=== PATIENT | female | born 1995 | race Caucasian/White ===

== ENCOUNTER 2023-11-20 22:05 | Emergency (ER) | payer OTHER, SELFPAY ==
[2023-11-20 22:06] VITALS: BP 159/95
--- NOTE | 2023-11-21 00:08 | ED.GENMED ---
History of Present Illness
General
Chief Complaint: Post Operative Problem(s)
Source: patient and family
Exam Limitations: none
Time Seen by Provider: 11/20/23 23:51
Nursing documentation reviewed up to this point in time: agreed with
Travel History
Have you had any contact with someone who has COVID-19?: No
Do you have any symptoms of coronavirus? Fever > 100 degrees, chills, cough, shortness of breath, sore throat, loss of taste or smell, muscle aches, or headache?: No
History of Present Illness
History of Present Illness:
27-year-old female presents with left foot pain. She had orthopedic surgery on her foot and the anesthesia started to wear off causing her immense pain. She called Claudia, who suggested that she take extra Percocet. She did which brought her
pain down to about a 7 out of 10. She took ibuprofen which did not seem to help. She was told to come to the emergency department for something extra to help her with her pain. Patient denies any new trauma. She states that the pain is located
in the foot where the surgery occurred. Denies any other pain.
Review of Systems
Review of Systems
Allergies reviewed?: Yes
Other source history: family
All Other Systems: ROS reviewed and negative except as documented in HPI and ROS
Constitutional: Reports no symptoms
EENT: Reports no symptoms
Respiratory: Reports no symptoms
Cardiac: Reports no symptoms
ABD/GI: Reports no symptoms
: Reports no symptoms
Musculoskeletal: Reports joint pain
Skin: Reports no symptoms
Neurological: Reports no symptoms
Endocrine: Reports no symptoms
Hematologic/Lymphatic: Reports no symptoms
Psychiatric: Reports anxiety
Phy Exam
General Physical Exam
General Presentation: well appearing and moderate distress
General age: appears stated age
General Skin: warm and dry
General Habitus: normal
General Mental: alert
General Hydration: appears well hydrated
Pulmonary Exam
Pulmonary Exam: no respiratory distress
Neurological Exam
Neurological Exam: alert and oriented x3
Musculoskeletal Exam
Musculoskeletal Exam: other (Left foot is in a splint and bandage. Patient request that we do not take it down. There is good capillary refill in the 3 toes that are exposed.)
Skin Exam
Skin Exam: normal color and warm/dry
Psychiatric Exam
Psychiatric Exam: normal mood/affect
Course
Orders/Labs/Results
Orders:
Orders
11/21/23 00:00
HYDROmorphone [Dilaudid] 0.5 mg IM NOW STA
Vital Signs
Initial and Last Documented VS:
Initial Vital Signs
Temp Pulse Resp BP Pulse Ox
98.0 F 86 18 159/95 98
11/20/23 22:06 11/20/23 22:06 11/20/23 22:06 11/20/23 22:06 11/20/23 22:06
Last Documented Vital Signs
Temp Pulse Resp BP Pulse Ox
98.0 F 98 16 149/77 95
11/20/23 22:06 11/21/23 01:16 11/21/23 01:16 11/21/23 01:16 11/21/23 01:16
*Critical Care Note
Total Time (30-74mins, 75-104mins- exclusive of procedures): Not Applicable
ED Attending Note
-
Portions of this chart may have been created with voice recognition software.� Occasional wrong word or��sound alike� substitutions may have occurred due to the inherent limitations of voice recognition software.
Discharge Plan
Departure
Patient Disposition: Home (Routine Discharge)
Date of Disposition: 11/21/23
Time of Disposition: 01:01
Patient with high blood pressure during this ER visit?: Yes
Discharge Problem:
Post-operative pain
Instructions: Postoperative Pain (DC), BLOOD PRESSURE
Prescriptions:
New
diclofenac sodium 75 mg tablet,delayed release (DR/EC)
75 mg PO BID Qty: 10 0RF
Referrals:
Jenise Lane PA [Family Provider] -
Activity Restrictions/Additional Instructions:
Your prescriptions were sent electronically to the pharmacy that you specified.
It was a pleasure meeting you and taking part in your care. We hope for your continued healing and wellness.
Please read discharge instructions in their entirety. However, they are for general education and may not describe your exact diagnosis at discharge. Information on your ER visit and medical conditions were discussed with you along with appropriate
follow up information...
If indicated, please take your medications as instructed and indicated on discharge paperwork.
Please schedule a follow up appointment as directed. Call to schedule an appointment
Please return to the emergency department with ANY change in, persisting, or worsening of symptoms. If any of your symptoms do not improve, or persist, or become more severe within 6-12 hours, please return to the emergency department for further
care.
Please return to the emergency department if you develop a headache, neck pain/stiffness, fever greater than 100.4F, chest pain, shortness of breath, persistent nausea, vomiting, slurred speech, difficulty walking, numbness/tingling, weakness, signs
of infection or any other symptoms that are worrisome to you.
If you have any questions or concerns please do not hesitate to call the Hospital at or E-mail me directly at [email or web address]
Interventions
Interventions:
*Risk Screen - Suicide Last Done: 11/20/23 22:06
*General Assessment Last Done: 11/20/23 22:06
*Neglect/Abuse Screening Last Done: 11/20/23 22:06
ED- Fall Risk Assessment Last Done: 11/20/23 23:55
*ED COVID-19 Vaccine History Last Done: 11/20/23 22:06
*Nursing Disposition Last Done: 11/21/23 01:16
ED-Skin Assessment Last Done: 11/20/23 23:42
Discharge Date and Time
Discharge Date/Time: 11/21/23 01:16
[2023-11-21] MEDS: DILAUDID 0.5 MG IM (00:11)
[2023-11-21 01:16] VITALS: BP 149/77
== END 2023-11-21 01:16 | disposition home or self-care (01) ==
LOC: EMR 22:05
PROVIDERS: EMERGENCY PHYSICIAN Student in an Organized Health Care Education/Training Program; FAMILY PHYSICIAN Physician Assistant Medical; REFERRING PHYSICIAN Orthopaedic Surgery
DX: G89.18 Other acute postprocedural pain (principal); R03.0 Elevated blood-pressure reading, without diagnosis of hypertension
CPT/HCPCS: 99284; 96372